=== PATIENT | male | born 2005 | race Two or more races ===

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

== ENCOUNTER 2023-02-11 14:49 | Emergency (ER) | payer MEDICAID, OTHER ==
[~2023-02-11] VITALS: Ht 177.8 cm; Wt 129.3 kg
[2023-02-11] MEDS ORDERED: BENZ1LOZ58 PO (15:54)
[2023-02-11] MEDS ORDERED: PENI500T PO (15:54)
[2023-02-11 15:57] VITALS: BP 137/81
--- NOTE | 2023-02-11 15:57 | NUR ---
PT C/O SORE THROAT
[2023-02-11] MEDS ORDERED: DEXAMETHASONE SOD PHOSPHATE 10 MG/ML VIAL IM ONE (16:00)
[2023-02-11] MEDS ORDERED: DEXAMETHASONE SOD PHOSPHATE 4 MG/ML VIAL ONE (16:25)
[2023-02-11] MEDS ORDERED: DEXAMETHASONE SOD PHOSPHATE 10 MG/ML VIAL ONE (16:28)
== END 2023-02-11 16:39 | disposition home or self-care (01) ==
LOC: ER 14:56
DX: J02.9 Acute pharyngitis, unspecified (principal); Z79.899 Other long term (current) drug therapy
CPT/HCPCS: 99283; 96372; 87880; J1100; 86403-TC

== ENCOUNTER 2023-09-25 19:02 | Emergency (ER) | payer OTHER ==
[~2023-09-25] VITALS: Ht 180.3 cm; Wt 136.5 kg
[~2023-09-25 19:02] MED LIST: BENZ1LOZ58 PO; PENI500T PO
[2023-09-25] MEDS ORDERED: MORPHINE SULFATE INJ 2 MG/ML DISP.SYRIN IV ONE (20:00)
[2023-09-25] MEDS ORDERED: ONDANSETRON HCL/PF 4 MG/2 ML VIAL IVP ONE (20:00)
[2023-09-25] MEDS ORDERED: IV NS 0.9% 1,000 ML BAG IV ONE (20:00)
[2023-09-25] MEDS ORDERED: KETOROLAC TROMETHAMINE 15 MG/ML VIAL IV ONE (20:00)
[2023-09-25] MEDS ORDERED: MORPHINE SULFATE INJ 4 MG/ML DISP.SYRIN ONE (20:36)
[2023-09-25] MEDS ORDERED: KETOROLAC TROMETHAMINE 15 MG/ML VIAL ONE (20:36)
[2023-09-25] MEDS ORDERED: ONDANSETRON HCL/PF 4 MG/2 ML VIAL ONE (20:36)
[2023-09-25 20:43] LABS: BASOPHILS % (AUTO) 0.2 % (0.0-2.0); EOSINOPHILS # (AUTO) 0.1 K/uL (0.0-0.7); EOSINOPHILS % (AUTO) 0.4 % (0.0-6.0); HEMATOCRIT 43 % (39-51); LYMPHOCYTES # (AUTO) 1.5 K/uL (0.8-4.8); MEAN CORPUSCULAR HEMOGLOBIN 25 PG (26.0-33.0); MEAN CORPUSCULAR HGB CONC 32 g/dl (31.0-36.0); MEAN CORPUSCULAR VOLUME 77 fL (80-96); MONOCYTES # (AUTO) 0.7 K/uL (0.1-1.30); MONOCYTES % (AUTO) 5.1 % (2.0-12.0); NEUTROPHILS # (AUTO) 11.7 K/uL (1.8-8.9); NEUTROPHILS % (AUTO) 83.3 % (43.0-81.0); PLATELET COUNT (AUTO) 303 K/uL (150-450); RED BLOOD CELL COUNT(AUTO) 5.58 MIL/uL (4.5-6.0); RED CELL DISTRIBUTION WIDTH 14.8 % (11.5-15.0)
[2023-09-25 20:55] LABS: CALCIUM, SERUM 10.2 mg/dL (8.5-10.1); CREATININE 1.1 mg/dL (0.6-1.3); POTASSIUM 3.2 mmol/L (3.5-5.1)
[2023-09-25] MEDS ORDERED: IBUP-1955 PO (21:23)
[2023-09-25] MEDS ORDERED: HYDR-4303 PO (21:23)
[2023-09-25] MEDS ORDERED: TAMS-12 PO (21:23)
[2023-09-25] MEDS ORDERED: ONDA4TAB5 PO (21:23)
[2023-09-25 21:47] LABS: APPEARANCE,URINE CLEAR (CLEAR); BILIRUBIN,URINE 1+ (NEGATIVE); BLOOD, URINE 3+ Ery/uL (NEGATIVE); COLOR,URINE YELLOW (YELLOW); KETONES,URINE 1+ mg/dL (NEGATIVE); LEUKOCYTE ESTERASE ,URINE NEGATIVE (NEGATIVE); NITRITE, URINE NEGATIVE (NEGATIVE); PH,URINE 5.5 (5.0-8.0); PROTEIN,URINE 1+ mg/dl (NEGATIVE); UGLUCOSE NEGATIVE (NEGATIVE); UROBILINOGEN,URINE 0.2 EU/dL (0.2)
[2023-09-25 22:24] LABS: ADD URINE CULTURE YES; BACTERIA,URINE 2+ /HPF (None Seen); MUCUS,URINE Moderate /LPF (None Seen); SQUAMOUS EPITHELIAL CELL,UR None Seen /HPF (None Seen); WBC,URINE NONE SEEN /HPF (0-3); YEAST,URINE Few /HPF (None Seen)
[2023-09-25 22:49] VITALS: BP 138/86; TEMP 98; O2SAT 100
== END 2023-09-25 22:49 | disposition home or self-care (01) ==
LOC: ER 19:06
DX: N20.0 Calculus of kidney (principal); R10.11 Right upper quadrant pain; R10.31 Right lower quadrant pain; R11.0 Nausea
CPT/HCPCS: 99285; 74176; 96374; 96375; 96361; 85025; 80048; 87086; 83690; 81001; 36415; 82962; J2270; J2405; J7030; J1885

== ENCOUNTER 2025-03-04 13:36 | Emergency (ER) | payer OTHER ==
[~2025-03-04] VITALS: Ht 177.8 cm; Wt 136.5 kg
[~2025-03-04 13:36] MED LIST changes: +HYDR-4303 PO; +IBUP-1955 PO; +ONDA4TAB5 PO; +TAMS-12 PO
[2025-03-04 14:02] VITALS: BP 149/66; TEMP 97.9; O2SAT 99
== END 2025-03-04 16:31 | disposition home or self-care (01) ==
LOC: ER 13:42
DX: H61.22 Impacted cerumen, left ear (principal); F19.10 Other psychoactive substance abuse, uncomplicated

== ENCOUNTER 2025-08-28 17:15 | Emergency (ER) | payer MEDICAID, OTHER ==
[~2025-08-28] VITALS: Ht 177.8 cm; Wt 141.5 kg
[2025-08-28 17:27] VITALS: BP 156/71; TEMP 98.1
[2025-08-28 17:57] VITALS: O2SAT 98
== END 2025-08-28 17:59 | disposition home or self-care (01) ==
LOC: ER 17:25
DX: L02.213 Cutaneous abscess of chest wall (principal); Z48.817 Encounter for surgical aftercare following surgery on the skin and subcutaneous tissue
CPT/HCPCS: 99282; A6407

== ENCOUNTER 2025-08-31 15:16 | Emergency (ER) | payer MEDICAID, OTHER ==
[~2025-08-31] VITALS: Ht 177.8 cm; Wt 141.5 kg
[2025-08-31 15:48] VITALS: BP 148/81; TEMP 98.3
[2025-08-31] MEDS ORDERED: MUPI22OI2 TP (17:19)
[2025-08-31 17:22] VITALS: O2SAT 98
== END 2025-08-31 17:23 | disposition home or self-care (01) ==
LOC: ER 15:18
DX: L02.213 Cutaneous abscess of chest wall (principal); Z48.00 Encounter for change or removal of nonsurgical wound dressing; Z98.890 Other specified postprocedural states